=== PATIENT | male | born 1940 | race Caucasian/White ===

== ENCOUNTER 2022-12-07 15:41 | Inpatient (IN) | payer MEDICARE, OTHER, SELFPAY ==
[2022-12-07 15:56] VITALS: BP 114/67; PULSE 91; RESP 20; TEMP 35.9; O2SAT 97; BMI 29.7
--- NOTE | 2022-12-07 16:24 | ED_ITS ---
HPI - General Adult General Time Seen by Provider: 16:48 Date Seen: 12/07/22 Chief complaint: Weakness Stated complaint: In and out of consciousness Time Seen by Provider: 12/07/22 16:22 Source: patient, family ( Son and provide history.), RN notes reviewed and old records reviewed Mode of arrival: ambulatory Limitations: no limitations History of Present Illness HPI narrative: Murphy is an 82-year-old male brought in by a his and son for concern of behavioral changes/altered mental status. He is having spells where he will not be responsive and will keep his eyes closed. His notes that she is unable to help the system up at times, he is becoming weaker in she cannot manage him alone. The son lives in [place] and believes the situation to be unsafe. He cannot get down quick enough if his dad should fall or the need help. His dad did wonder out of the house in the night about a week and a half ago and the police had to come help. They do have a nursing consult with [facility] care unit in [place] this coming Saturday. He was at [address] yesterday, had normal chest x-ray, had no acute changes on head CT, COVID 19 and influenza were negative, TSH was 5.72, urinalysis was normal, CBC and comprehensive metabolic panel were showing no acute abnormalities. His sodium was 136 yesterday and his notes that is only 1 point above normal. He has had a history of hyponatremia before. I reviewed with her that the sodium level yesterday would not be causative of his symptoms. Ultimately the son does not feel that he is safe to go home with his mom, she does not feel safe caring for him. It does sound like he does have . We have spent some time discussing Alzheimer's, progression of the disease. He does have chronic lower extremity edema for which his states they have stopped giving him Lasix. If the given Lasix he will have urinary incontinence and issues with that. Related Data Home Medications Medication Instructions Recorded Confirmed allopurinol 300 mg tablet 300 mg PO DAILY 12/07/22 12/07/22 amlodipine 10 mg tablet 10 mg PO DAILY 12/07/22 12/07/22 aspirin 81 mg capsule 81 mg PO DAILY 12/07/22 12/08/22 donepezil 10 mg tablet 10 mg PO DAILY 12/07/22 12/07/22 famotidine 40 mg tablet 40 mg PO DAILY 12/07/22 12/07/22 furosemide 20 mg tablet 20 mg PO DAILY PRN 12/07/22 12/07/22 levothyroxine 150 mcg tablet 150 mcg PO DAILY 12/07/22 12/07/22 lisinopril 20 mg tablet 20 mg PO BID 12/07/22 12/07/22 memantine 10 mg tablet 10 mg PO BID 12/07/22 12/07/22 metoprolol succinate 25 mg 12.5 mg PO DAILY 12/07/22 12/07/22 tablet,extended release 24 hr omeprazole 20 mg capsule,delayed 20 mg PO DAILY 12/07/22 12/07/22 release sertraline 50 mg tablet 75 mg PO DAILY 12/07/22 12/07/22 aspirin 81 mg tablet,delayed 81 mg PO DAILY 12/08/22 12/08/22 release (Adult Low Dose Aspirin) Allergies Allergy/AdvReac Type Severity Reaction Status Date / Time No Known Drug Allergies Allergy Verified 12/07/22 15:56 Review of Systems Status of ROS: Reports: unobtainable due to medical condition and unobtainable due to mental status PFSH PFS Medical History (Updated 12/08/22 @ 12:04 by Fany Montez MD) Renal cell carcinoma ?C64.9 - Malignant neoplasm of unspecified kidney, except renal pelvis (ICD- 10) Basal cell carcinoma ?C44.91 - Basal cell carcinoma of skin, unspecified (ICD-10) Hypothyroidism ?E03.9 - Hypothyroidism, unspecified (ICD-10) Gout ?M10.9 - Gout, unspecified (ICD-10) Depression ?F32.A - Depression, unspecified (ICD-10) Essential hypertension ?I10 - Essential (primary) hypertension (ICD-10) Surgical History (Updated 12/07/22 @ 17:49 by Fany Montez MD) History of hip replacement ?Z96.649 - Presence of unspecified artificial hip joint (ICD-10) Hx of cholecystectomy ?Z90.49 - Acquired absence of other specified parts of digestive tract (ICD- 10) History of nephrectomy ?Z90.5 - Acquired absence of kidney (ICD-10) Social History (Updated 12/07/22 @ 19:15 by Fany Montez MD) Narrative: Murphy lives with Denise (Medical decision maker) of 50 years. Retired. 2 adult sons, nonsmoker, no ETOH use. DNR/DNI status What is your current living situation?: I presently have a place to live Problems where you live: no known problems Problems where you live details: n/a In the past 12 months, utilities in danger of being shut off: no In the past 12 mos, have been you worried that your food would run out before you had money to buy more?: never true In the past 12 mos, the food you bought just didn't last and you didn't have money to buy more?: never true Smoking Status: Never smoker Do you use any of these nicotine containing products: None Second hand tobacco smoke exposure: No How often do you have a drink containing alcohol: never How often do you have six or more drinks on one occasion: Never AUDIT-C Alcohol total score: 0 Non-prescribed substance use: denies use How often does anyone, including family, friends and others, physically hurt you : never How often does anyone, including family, friends and others, insult or talk down to you: never How often does anyone, including family, friends and others, threaten you with harm: never How often does anyone, including family, friends and others, scream or curse at you: never service: Yes Exam Const: Vital Signs, click to edit/add: Vital Signs - 24 hr 12/08/22 07:00 12/08/22 07:00 12/08/22 11:00 Temperature 98.5 F 98.4 F Pulse Rate [Right Pulse Oximeter] 90 90 84 Respiratory Rate 16 16 16 Blood Pressure [Le ft Arm] 139/94 H 97/67 Pulse Oximetry 94 95 Oxygen Delivery Me thod Room Air Room Air Documenting provider has reviewed patient's vital signs: yes Other: Patient is slender build, lying in bed comfortably keeping his eyes closed. He will open his eyes when I request him to. He will occasionally out of the blue answer something. He does follow commands when prompted. HENMT: Common normals: normocephalic, head/scalp atraumatic, hearing grossly normal bilaterally and external ears normal Head and scalp: normocephalic and atraumatic External ear: external ears normal Eye: Common normals: PERRL, EOMs intact bilaterally and no scleral icterus Pupil: PERRL Other: Mild conjunctival injection without any periorbital swelling erythema or drainage. Neck & C-Spine: Common normals: full ROM, no lymphadenopathy and supple Resp: Common normals: normal respiratory effort, no retractions, no use of accessory muscles and clear to auscultation bilaterally Auscultation: clear to auscultation bilaterally Cardio: Common normals: regular rate, regular rhythm, S1 normal heart sound, S2 normal heart sound, no gallops and no clicks Rate: regular rate Rhythm: regular rhythm Heart sounds: S1 normal and S2 normal GI: Common normals: Normal to inspection, nondistended, normoactive bowel sounds present, soft to palpation, non-tender, no hepatosplenomegaly and no masses Palpation: soft and no hepatosplenomegaly Extremity: Other: Chronic pitting edema with stocking it is on both lower extremities. Family feels it is baseline. Course Course Hospital Course: Have reviewed with family that I here the concern about his being safe at home. Will talk to our hospitalist about admission. We will stab lotion IV, recheck a basic metabolic panel, C reactive protein and CBC. Beyond that, I do not see a nything else that we need to act on emergently. We certainly can observe him and see if there is any focus of infection that should develop. I have reviewed with them that I would not recommend an MRI of his brain, head CT did not show any significant major changes yesterday. Even if he did perhaps have a small stroke, given his advanced dementia, there is not likely any acute treatment that is going to alter his core significantly. Hospitalists can review this but I would not recommend MRI at this time. Consultations Consultation #1: Have spoken with the hospitalist Dr. Montez regarding this patient. She understands my review of the social situation, does except for placement. Time: 17:13 Vital Signs Vital signs: Initial Vital Signs Temperature 96.7 F L 12/07/22 15:56 Temperature Source Temporal Artery Scan 12/07/22 15:56 Pulse Rate 91 12/07/22 15:56 Pulse Rhythm Regular 12/07/22 15:56 Respiratory Rate 20 12/07/22 15:56 Blood Pressure 114/67 12/07/22 15:56 Blood Pressure Mean 82 12/07/22 15:56 Blood Pressure Position Sitting 12/07/22 15:56 Pulse Oximetry 97 12/07/22 15:56 Oxygen Delivery Method Room Air 12/07/22 15:56 Vital Signs Temperature 96.7 F L 12/07/22 15:56 Pulse Rate 91 12/07/22 15:56 Respiratory Rate 20 12/07/22 15:56 Blood Pressure 114/67 12/07/22 15:56 Pulse Oximetry 97 12/07/22 15:56 Oxygen Delivery Method Room Air 12/07/22 15:56 Temperature 98.7 F 12/08/22 23:12 Pulse Rate 94 12/08/22 23:12 Respiratory Rate 20 12/08/22 23:12 Blood Pressure 152/91 H 12/08/22 23:12 Pulse Oximetry 95 12/08/22 23:12 Oxygen Delivery Method Room Air 12/08/22 23:12 Medical Decision Making Lab Data Lab results reviewed: Yes I reviewed the patient's lab results Labs: Lab Results 12/07/22 12/08/22 Range/Units 17:45 06:51 WBC 7.30 (4.50-11.00) K/uL RBC 4.48 (4.30-5.90) m/uL Hgb 13.6 (13.5-17.5) gm/dL Hct 41.0 (37.0-53.0) % MCV 92 (80-100) fL MCH 30 (26-34) pg MCHC 33 (32-36) gm/dL RDW Coeff of Merari 13.0 (11.5-15.5) % Plt Count 254 (140-440) K/uL Neut % (Auto) 73.7 H (42.0-72.0) % Lymph % (Auto) 13.3 L (20-44) % [place] % (Auto) 11.0 (0.0-11.0) % Eos % (Auto) 1.0 (0.0-7.0) % Baso % (Auto) 0.7 (0.0-3.0) % Neut # (Auto) 5.40 (1.7-7.0) K/uL Lymph # (Auto) 1.00 (0.90-2.90) K/uL [place] # (Auto) 0.80 (0.00-0.90) K/UL Eos # (Auto) 0.07 (0.00-0.50) K/uL Baso # (Auto) 0.05 (0.00-0.30) K/uL Abs Immat Gran (auto) 0.02 (0.00-0.30) K/uL Imm/Tot Granulo (auto) 0.3 % Sodium 136 135 (135-149) mmol/L Potassium 4.6 4.1 (3.6-5.1) mmol/L Chloride 99 101 (96-114) mmol/L Carbon Dioxide 30 27 (20-32) mmol/L BUN 40 H 33 H (7-30) mg/dL Creatinine 1.3 1.2 (0.5-1.5) mg/dL Estimated Creat Clear 48.66 51.19 Estimated GFR 55 60 ml/min Glucose 125 H 95 (60-115) mg/dL Calcium 9.6 9.4 (8.4-10.6) mg/dL Troponin I 0.05 H 0.06 H* (0.01-0.04) ng/mL C-Reactive Protein 1.8 H (0.5-1.0) mg/dL Lab Acknowledgement Test Added Discharge Plan Discharge Clinical Impression: Unable to care for self, Dementia Patient Disposition: Admitted As Observation
[2022-12-07 18:02] LABS: Basophils Absolute Auto 0.05 K/uL (0.00-0.30); Basophils Percent Auto 0.7 % (0.0-3.0); Eosinophils Absolute Auto 0.07 K/uL (0.00-0.50); Hemoglobin* 13.6 gm/dL (13.5-17.5); Immature Granulocytes Abs Auto 0.02 K/uL (0.00-0.30); Immature Granulocytes Pct Auto 0.3 %; Lymphocytes Percent Auto 13.3 % (20-44); Mean Corpuscular HGB Conc 33 gm/dL (32-36); Mean Corpuscular Hemoglobin 30 pg (26-34); Mean Corpuscular Volume 92 fL (80-100); Neutrophils Percent Auto 73.7 % (42.0-72.0); Platelet Count* 254 K/uL (140-440); Red Blood Count 4.48 m/uL (4.30-5.90)
[2022-12-07 18:18] LABS: Slide Review Reflex No
[2022-12-07 18:22] LABS: Chloride* 99 mmol/L (96-114); Potassium* 4.6 mmol/L (3.6-5.1); Sodium* 136 mmol/L (135-149)
[2022-12-07 18:24] LABS: Creatinine* 1.3 mg/dL (0.5-1.5); Est. Creatinine Clearance* 48.66; Estimated Glomerular Filt Rate 55 ml/min
[2022-12-07 18:25] LABS: Blood Urea Nitrogen* 40 mg/dL (7-30); Carbon Dioxide* 30 mmol/L (20-32); Glucose* 125 mg/dL (60-115)
[2022-12-07 18:26] LABS: Calcium* 9.6 mg/dL (8.4-10.6)
[2022-12-07 18:28] LABS: C Reactive Protein* 1.8 mg/dL (0.5-1.0)
--- NOTE | 2022-12-07 18:30 | ED.NURSE ---
report given to Dina ARANGO, pt will transfer to [facility] via cart with belongings.
[2022-12-07 18:52] VITALS: BP 96/66; PULSE 85; RESP 16; TEMP 36.2; O2SAT 99; BMI 27.7
--- NOTE | 2022-12-07 19:13 | PM.IMHP1 ---
Hospitalist- H&P: HPI History of Present Illness Date Seen: 12/07/22 Chief complaint: In and out of consciousness Narrative: Murphy Lacy is a 82 year old male with a known history of Alzheimer's dementia who was brought in to the ED this evening by his Denise for concern of weakness and altered mental status. She has noted increasing weakness and decreased level of responsiveness intermittently over the past few days. He has had no symptoms of acute illness, no fevers. Last fall was approximately 1 month ago. Yesterday, he was seen in the [place] [address] emergency room. Workup at [place] [address] on 12/06: - negative head CT - negative chest x-ray - Negative flu, negative COVID, normal TSH, normal UA, normal electrolytes There were no beds available for placement locally last night, so Denise elected to take Christiano home. This morning, he seemed even weaker and less responsive, so she brought him to the [facility] Emergency Room. In our ED, VS and baseline labs reassuring. His weakness and dementia have progressed to the point that she is unable to care for him safely at home; last week he wandered out of the house and police had to be called to help find patient. Family has been in touch with a facility in [place] ([facility]) and they are currently scheduled for a home assessment on Saturday. Medical history updated below after review with Denise; PCP is Dr. Lowry in [place]. Review of Systems Narrative: Per Denise: - blood pressure has been on the lower side for awhile, it is unclear if patient is symptomatic from low blood pressure. He has been taking his home medications - Murphy has recently had more incontinence and urinary frequency; they have been holding his furosemide as a result Per Murphy: - ROS limited by cognition, but specifically denies any chest pain or any concerns for hospitalist [facility] Medical History (Updated 12/07/22 @ 19:43 by Fany Montez MD) Renal cell carcinoma ?C64.9 - Malignant neoplasm of unspecified kidney, except renal pelvis (ICD-10) Basal cell carcinoma ?C44.91 - Basal cell carcinoma of skin, unspecified (ICD-10) Hypothyroidism ?E03.9 - Hypothyroidism, unspecified (ICD-10) Gout ?M10.9 - Gout, unspecified (ICD-10) Depression ?F32.A - Depression, unspecified (ICD-10) Essential hypertension ?I10 - Essential (primary) hypertension (ICD-10) Surgical History (Updated 12/07/22 @ 17:49 by Fany Montez MD) History of hip replacement ?Z96.649 - Presence of unspecified artificial hip joint (ICD-10) Hx of cholecystectomy ?Z90.49 - Acquired absence of other specified parts of digestive tract (ICD-10) History of nephrectomy ?Z90.5 - Acquired absence of kidney (ICD-10) Social History (Updated 12/07/22 @ 19:15 by Fany Montez MD) Narrative: Murphy lives with Denise (Medical decision maker) of 50 years. Retired. 2 adult sons, nonsmoker, no ETOH use. DNR/DNI status Smoking Status: Never smoker Do you use any of these nicotine containing products: None Second hand tobacco smoke exposure: No How often do you have a drink containing alcohol: never How often do you have six or more drinks on one occasion: Never AUDIT-C Alcohol total score: 0 Non-prescribed substance use: denies use service: Yes Meds Home Medications and Allergies Home Medications Medication Instructions Recorded Confirmed Type allopurinol 300 mg tablet 300 mg PO DAILY 12/07/22 12/07/22 History amlodipine 10 mg tablet 10 mg PO DAILY 12/07/22 12/07/22 History aspirin 81 mg capsule 81 mg PO DAILY 12/07/22 12/07/22 History donepezil 10 mg tablet 10 mg PO DAILY 12/07/22 12/07/22 History famotidine 40 mg tablet 40 mg PO DAILY 12/07/22 12/07/22 History furosemide 20 mg tablet 20 mg PO DAILY PRN 12/07/22 12/07/22 History levothyroxine 150 mcg tablet 150 mcg PO DAILY 12/07/22 12/07/22 History lisinopril 20 mg tablet 20 mg PO BID 12/07/22 12/07/22 History memantine 10 mg tablet 10 mg PO BID 12/07/22 12/07/22 History metoprolol succinate 25 mg 12.5 mg PO DAILY 12/07/22 12/07/22 History tablet,extended release 24 hr omeprazole 20 mg capsule,delayed 20 mg PO DAILY 12/07/22 12/07/22 History release sertraline 50 mg tablet 75 mg PO DAILY 12/07/22 12/07/22 History Allergies Allergy/AdvReac Type Severity Reaction Status Date / Time No Known Drug Allergies Allergy Verified 12/07/22 15:56 Exam Narrative: Exam Narrative: GEN: Alert in laying comfortably in bed, appears chronically ill but non toxic HEENT: EOMIs bilaterally, no scleral icterus CV: RRR, No concerning murmurs, heart sounds distant R: LCTA bilaterally without concerning wheezing, air movement adequate Abdomen: Soft, tolerates palpation, no distension Ext: 2+ edema BLE, symmetric Skin: Scattered SKs on extremities, no concerning lesions on exposed skin Neuro: No focal deficits, no resting tremor Psych: MCI is apparent, no agitation Const: Vital Signs, click to edit/add: Vital Signs - 24 hr 12/07/22 15:56 Temperature 96.7 F L Pulse Rate [Pulse Oximeter] 91 Respiratory Rate 20 Blood Pressure [Ri ght Upper Arm] 114/67 Pulse Oximetry 97 Oxygen Delivery Me thod Room Air Hospitalist - H&P: Result Labs Labs: Short CBC 12/07/22 Range/Units 17:45 WBC 7.30 (4.50-11.00) K/uL Hgb 13.6 (13.5-17.5) gm/dL Hct 41.0 (37.0-53.0) % Plt Count 254 (140-440) K/uL BMP 12/07/22 17:45 Sodium 136 Potassium 4.6 Chloride 99 Carbon Dioxide 30 BUN 40 H Creatinine 1.3 Glucose 125 H Calcium 9.6 Assessment and Plan Assessment and plan (1) Weakness: Problem comment: - likely primarily related to progression of dementia - differential diagnosis includes hypotension, infectious process, atypical CVA, metabolic disturbance - labs upon admission are reassuring; we will hold blood pressure meds on admission - therapies ordered Status: Acute (2) Dementia: Problem comment: - Alzheimer's, no agitation Status: Acute (3) Unable to care for self: Problem comment: - will require higher LOC upon discharge; family has initiated discussions with [facility] in [place] Status: Acute Plan - admit, therapies - SCDs for ppx - pharmacologic anticoagulation deferred given GERD and anticipated short stay - and son updated at bedside, questions answered
--- NOTE | 2022-12-07 19:41 | PC.NURSE ---
shift note: pt admit to rm 258 via stretcher from ED. BP 96/66. Pt asymptomatic. Dr. Montez aware of BP. Pt 2/walker to bed. pt slow with verbal responses. IV in place to Rt FA. Reported to Lani ARANGO
[2022-12-07] MEDS: SODIUM CHLORIDE 0.9 % (FLUSH) 10 ML SYRINGE 5 ML IVF (20:44)
[2022-12-07] MEDS: MEMANTINE HCL 10 MG TABLET PO (20:44)
[2022-12-07] MEDS: FAMOTIDINE 20 MG TABLET PO (20:44)
[2022-12-07] MEDS: allopurinoL 300 MG TABLET PO (20:44)
[2022-12-07] MEDS: OMEPRAZOLE 20 MG CAPSULE DR PO (20:44)
[2022-12-07] MEDS: ASPIRIN 81 MG TABLET EC PO (20:44)
[2022-12-07 21:54] LABS: Troponin I* 0.05 ng/mL (0.01-0.04)
[2022-12-07 23:07] VITALS: BP 115/79; RESP 18; TEMP 36.6; O2SAT 97
--- NOTE | 2022-12-08 06:13 | PC.NURSE ---
End of shift: Pt alert to self. VSS w/ sats >90% on RA. Occasionally incontinent of urine. Pt had 1 continent void via bedside commode. Pt has small amount of bleeding from penis, pt was straight cathed at [facility] on 12/06 per pt and family. A2 w/ walker and gait belt w/ queuing. Pt woke up in the middle of the night very confused and hard to reorientate. Construction Inspector sat w/ pt until pt was able to fall back asleep. Bed alarm in place. ?
[2022-12-08 07:00] VITALS: BP 139/94; PULSE 90; RESP 16; TEMP 36.9; O2SAT 94
[2022-12-08 07:23] LABS: Chloride* 101 mmol/L (96-114); Potassium* 4.1 mmol/L (3.6-5.1); Sodium* 135 mmol/L (135-149)
[2022-12-08 07:26] LABS: Creatinine* 1.2 mg/dL (0.5-1.5); Est. Creatinine Clearance* 51.19; Estimated Glomerular Filt Rate 60 ml/min
[2022-12-08 07:27] LABS: Blood Urea Nitrogen* 33 mg/dL (7-30); Calcium* 9.4 mg/dL (8.4-10.6); Carbon Dioxide* 27 mmol/L (20-32); Glucose* 95 mg/dL (60-115)
[2022-12-08 07:54] LABS: Troponin I* 0.06 ng/mL (0.01-0.04)
[2022-12-08] MEDS: DONEPEZIL 10 MG TABLET PO (09:23)
[2022-12-08] MEDS: SERTRALINE 50 MG TABLET 75 MG PO (09:23)
[2022-12-08] MEDS: FAMOTIDINE 20 MG TABLET PO ×2 (09:23→20:10)
[2022-12-08] MEDS: LEVOTHYROXINE 75 MCG TABLET 150 MCG PO (09:23)
[2022-12-08] MEDS: MEMANTINE HCL 10 MG TABLET PO ×2 (09:23→20:10)
[2022-12-08] MEDS: SODIUM CHLORIDE 0.9 % (FLUSH) 10 ML SYRINGE 5 ML IVF ×2 (09:23→20:11)
[2022-12-08 11:00] VITALS: BP 97/67; PULSE 84; RESP 16; TEMP 36.9; O2SAT 95
--- NOTE | 2022-12-08 11:56 | PM.IMPN1 ---
Progress Note: A&P Assessment and plan (1) Weakness: Problem details: - likely primarily related to progression of dementia, NSTEMI also possibly contributing - hypotensive on admission, holding home BP medications, TTE 12/08 - therapies ordered Status: Acute (2) NSTEMI (non-ST elevated myocardial infarction): Problem details: - elevated troponin noted on admission - discussed results with ; she would like to trend troponin and obtain TTE to help with medication management and guide care/dispo Status: Acute (3) Dementia: Problem details: - Alzheimer's, no agitation Status: Acute (4) Unable to care for self: Problem details: - will require higher LOC upon discharge; family has initiated discussions with [facility] in [place] Status: Acute (5) Abnormal ear exam: Problem details: - erythema and edema of inferior auricles bilaterally, L>R. No evidence of polychondritis on chart review, does not appear acutely infectious - patient does have history of skin picking - continue to follow, treat for cellulitis if clinically indicated Status: Acute Plan - per above - updated at phone and bedside, questions answered Subjective Date Seen: 12/08/22 Interval history: Murphy was admitted last night for acute on chronic weakness in the setting of dementia. His troponin was noted to be elevated at 0.05, this morning is 0.06. Patient denies any chest pain or other concerns for hospitalist team this morning. Exam Narrative: Exam Narrative: GEN: Sitting comfortably in bedside chair and eating breakfast HEENT: Murphy has erythema and edema of inferior auricles bilaterally, L>R. No ttp, no open skin CV: RRR, No concerning murmurs R: LCTA bilaterally without concerning wheezing, air movement adequate Ext: wwp, no concerning edema Skin: Dry flaky skin on scalp, scattered SKs on back and extremities. No concerning skin lesions or rashes on exposed skin Psych: No agitation, cognitive impairment is evident Const: Vital Signs, click to edit/add: Vital Signs - 24 hr 12/07/22 15:56 12/07/22 18:52 12/07/22 23:07 Temperature 96.7 F L 97.1 F L 97.9 F Pulse Rate [Left B rachial] 85 Pulse Rate [Pulse Oximeter] 91 Pulse Rate [Right Pulse Oximeter] Respiratory Rate 20 16 18 Blood Pressure [Le ft Arm] 96/66 115/79 Blood Pressure [Ri ght Upper Arm] 114/67 Pulse Oximetry 97 99 97 Oxygen Delivery Me thod Room Air Room Air Room Air 12/08/22 07:00 12/08/22 07:00 Temperature 98.5 F Pulse Rate [Left B rachial] Pulse Rate [Pulse Oximeter] Pulse Rate [Right Pulse Oximeter] 90 90 Respiratory Rate 16 16 Blood Pressure [Le ft Arm] 139/94 H Blood Pressure [Ri ght Upper Arm] Pulse Oximetry 94 Oxygen Delivery Me thod Room Air Labs Labs: Laboratory Results - last 24 hr 12/07/22 12/08/22 17:45 06:51 WBC 7.30 RBC 4.48 Hgb 13.6 Hct 41.0 MCV 92 MCH 30 MCHC 33 RDW Coeff of Merari 13.0 Plt Count 254 Neut % (Auto) 73.7 H Lymph % (Auto) 13.3 L [place] % (Auto) 11.0 Eos % (Auto) 1.0 Baso % (Auto) 0.7 Neut # (Auto) 5.40 Lymph # (Auto) 1.00 [place] # (Auto) 0.80 Eos # (Auto) 0.07 Baso # (Auto) 0.05 Abs Immat Gran (auto) 0.02 Imm/Tot Granulo (auto) 0.3 Sodium 136 135 Potassium 4.6 4.1 Chloride 99 101 Carbon Dioxide 30 27 BUN 40 H 33 H Creatinine 1.3 1.2 Estimated Creat Clear 48.66 51.19 Estimated GFR 55 60 Glucose 125 H 95 Calcium 9.6 9.4 Troponin I 0.05 H 0.06 H* C-Reactive Protein 1.8 H Lab Acknowledgement Test Added
--- NOTE | 2022-12-08 15:49 | PC.NURSE ---
End of Shift: Patient pleasant and cooperative. Alert to self. Afebrile. Denies pain. Up to chair with 2 assist, walker and gait belt. Tolerating regular diet with no nausea.
[2022-12-08 16:05] VITALS: BP 140/79; PULSE 89; RESP 16; TEMP 36.8; O2SAT 95
[2022-12-08 19:05] VITALS: BP 139/54; PULSE 87; RESP 16; TEMP 36.8; O2SAT 97
[2022-12-08] MEDS: allopurinoL 300 MG TABLET PO (20:10)
[2022-12-08] MEDS: ASPIRIN 81 MG TABLET EC PO (20:10)
[2022-12-08] MEDS: OMEPRAZOLE 20 MG CAPSULE DR PO (20:11)
--- NOTE | 2022-12-08 22:11 | PC.NURSE ---
Shift [id number]- Patient denies pain. He seemed to be hallucinating this afternoon about two boys arguing. Family states he seems more out of it today. This afternoon he is somewhat restless to go (leave), though is not agitated. He keeps his eyes closed throughout interactions, even eating, is rarely able or willing to follow prompts to open eyes. Responses are slow or none. He does make an effort to tell RN a few jokes after supper, though is unable to remember them as he is telling them. Maximum assist to eat, eventually total assist. He is incontinent- pericares provided.
[2022-12-08 23:12] VITALS: BP 152/91; PULSE 94; RESP 20; TEMP 37.1; O2SAT 95
[2022-12-08] MEDS: OLANZapine 5 MG TAB.RAPDIS PO (23:46)
--- NOTE | 2022-12-09 06:36 | PC.NURSE ---
[id number]: Alert to self. VSS. Pt was restless, throwing legs out of bed, and appeared to hallucinating talking about ?the man by the door?. attempting to reorientate and sit w/ pt. PRN Zyprexa given. Pt resting. ?pt is incontinent. Turn and repo.
[2022-12-09 07:00] VITALS: BP 111/67; PULSE 66; RESP 14; TEMP 36.2; O2SAT 94
[2022-12-09 07:35] LABS: Basophils Absolute Auto 0.03 K/uL (0.00-0.30); Basophils Percent Auto 0.6 % (0.0-3.0); Eosinophils Absolute Auto 0.08 K/uL (0.00-0.50); Eosinophils Percent Auto 1.5 % (0.0-7.0); Hematocrit 35.7 % (37.0-53.0); Hemoglobin* 11.8 gm/dL (13.5-17.5); Immature Granulocytes Abs Auto 0.01 K/uL (0.00-0.30); Immature Granulocytes Pct Auto 0.2 %; Lymphocytes Absolute Auto 1.32 K/uL (0.90-2.90); Lymphocytes Percent Auto 25.2 % (20-44); Mean Corpuscular HGB Conc 33 gm/dL (32-36); Mean Corpuscular Hemoglobin 31 pg (26-34); Mean Corpuscular Volume 93 fL (80-100); Monocytes Percent Auto 13.6 % (0.0-11.0); Neutrophils Absolute Auto 3.08 K/uL (1.7-7.0); Neutrophils Percent Auto 58.9 % (42.0-72.0); Platelet Count* 214 K/uL (140-440); Red Blood Count 3.85 m/uL (4.30-5.90); White Blood Count* 5.23 K/uL (4.50-11.00)
[2022-12-09 07:42] LABS: Slide Review Reflex No
[2022-12-09 07:46] LABS: Chloride* 103 mmol/L (96-114); Potassium* 3.7 mmol/L (3.6-5.1); Sodium* 137 mmol/L (135-149)
[2022-12-09 07:49] LABS: Blood Urea Nitrogen* 30 mg/dL (7-30); Carbon Dioxide* 30 mmol/L (20-32); Creatinine* 1.2 mg/dL (0.5-1.5); Est. Creatinine Clearance* 51.19; Estimated Glomerular Filt Rate 60 ml/min; Glucose* 96 mg/dL (60-115)
[2022-12-09 08:02] LABS: Troponin I* 0.07 ng/mL (0.01-0.04)
--- NOTE | 2022-12-09 11:08 | PM.IMPN1 ---
Progress Note: A&P Assessment and plan (1) Weakness: Problem details: - likely primarily related to progression of dementia, NSTEMI also possibly contributing - hypotensive on admission, holding home BP medications, TTE 12/08 - therapies ordered Status: Acute (2) NSTEMI (non-ST elevated myocardial infarction): Problem details: - elevated troponin noted on admission - discussed results with ; she would like to trend troponin and obtain TTE to help with medication management and guide care/dispo - TTE obtained 12/08: Normal LV size with moderately increased wall thickness, EF 60-65%, mildly enlarged left atrium, sclerotic aortic and mitral valves Status: Acute (3) Dementia: Problem details: - Alzheimer's, no agitation Status: Acute (4) Unable to care for self: Problem details: - will require higher LOC upon discharge; family has initiated discussions with [facility] in [place] Status: Acute (5) Abnormal ear exam: Problem details: - erythema and edema of inferior auricles bilaterally, (L>R), noted 12/08. No hx of polychondritis on chart review - patient does have history of skin picking - continue to follow, significant improvement 12/09 Status: Acute Plan - continue to follow BPs, holding home medications - dispo: requires higher LOC upon d/c, appreciate input from therapies, social work - ASA and SCDs for ppx Subjective Date Seen: 12/09/22 Interval history: Murphy was admitted on 12/07 for acute on chronic weakness in the setting of dementia. His troponin was noted to be elevated on admission at 0.05 --> 0.06 --> 0.07. He has never noted chest pain. Last night, he was agitated and trying to leave his bed; received a dose of Zyprexa. This morning, he is sleepy, but was able to get up from bed to chair and order breakfast. Exam Narrative: Exam Narrative: GEN: Asleep in chair, wakes to voice and denies concerns HEENT: Ears less erythematous today, no warmth, redness, or ttp CV: RRR, No concerning murmurs R: LCTA bilaterally without concerning wheezing, air movement adequate Ext: wwp, no concerning edema Skin: Hip hematoma not formally examined (from fall 4 weeks ago) Psych: Sleepy, no agitation Const: Vital Signs, click to edit/add: Vital Signs - 24 hr 12/08/22 16:05 12/08/22 19:05 12/08/22 23:12 Temperature 98.2 F 98.2 F 98.7 F Pulse Rate [Right Pulse Oximeter] 89 87 94 Respiratory Rate 16 16 20 Blood Pressure [Le ft Arm] 140/79 H 139/54 L 152/91 H Pulse Oximetry 95 97 95 Oxygen Delivery Me thod Room Air Room Air Room Air 12/09/22 07:00 Temperature 97.2 F L Pulse Rate [Right Pulse Oximeter] 66 Respiratory Rate 14 Blood Pressure [Le ft Arm] 111/67 Pulse Oximetry 94 Oxygen Delivery Me thod Room Air Labs Labs: Laboratory Results - last 24 hr 12/09/22 07:10 WBC 5.23 RBC 3.85 L Hgb 11.8 L Hct 35.7 L MCV 93 MCH 31 MCHC 33 RDW Coeff of Merari 13.0 Plt Count 214 Neut % (Auto) 58.9 Lymph % (Auto) 25.2 [place] % (Auto) 13.6 H Eos % (Auto) 1.5 Baso % (Auto) 0.6 Neut # (Auto) 3.08 Lymph # (Auto) 1.32 [place] # (Auto) 0.70 Eos # (Auto) 0.08 Baso # (Auto) 0.03 Abs Immat Gran (auto) 0.01 Imm/Tot Granulo (auto) 0.2 Sodium 137 Potassium 3.7 Chloride 103 Carbon Dioxide 30 BUN 30 Creatinine 1.2 Estimated Creat Clear 51.19 Estimated GFR 60 Glucose 96 Calcium 9.0 Troponin I 0.07 H*
--- NOTE | 2022-12-09 15:30 | PC.NURSE ---
End of Shift: Patient sleepy this AM. Minimally responsive to name. Did open eyes and was able to transfer from bed to chair with 2 assist, walker and gait belt. Offered food/water to patient throughout shift and would not open eyes or mouth to eat or drink. Unable to give patient any medications, updated MD. Patient incontinent x2. Frequent turn and reposition.
[2022-12-09 15:48] VITALS: BP 141/89; PULSE 88; RESP 16; TEMP 36.2; O2SAT 97
[2022-12-09] MEDS: SODIUM CHLORIDE 0.9 % (FLUSH) 10 ML SYRINGE 5 ML IVF (20:45)
--- NOTE | 2022-12-09 22:47 | PC.NURSE ---
Shift [id number]- Patient is minimally responsive this shift- only occasionally/rarely responding to prompts. He is up to chair this afternoon and returned to bed (pivot) with A/3, walker, gait belt. He keeps eyes closed throughout process, but does participate in movement. He is not awake or responsive enough to eat or take pills and is particularly somnolent this evening. Tonight though, upon a check, he is found to be trying to sit up in bed, stated he had to use the bathroom, then successfully used urinal RN provided. He also did take water through straw at RN assistance at that time.
[2022-12-09 23:00] VITALS: BP 167/89; PULSE 88; PULSE 97; RESP 16; TEMP 36.4; O2SAT 97
[2022-12-10 06:24] LABS: Basophils Absolute Auto 0.04 K/uL (0.00-0.30); Basophils Percent Auto 0.5 % (0.0-3.0); Eosinophils Absolute Auto 0.11 K/uL (0.00-0.50); Eosinophils Percent Auto 1.3 % (0.0-7.0); Hematocrit 40.7 % (37.0-53.0); Hemoglobin* 13.5 gm/dL (13.5-17.5); Immature Granulocytes Abs Auto 0.02 K/uL (0.00-0.30); Immature Granulocytes Pct Auto 0.2 %; Lymphocytes Percent Auto 14.8 % (20-44); Mean Corpuscular HGB Conc 33 gm/dL (32-36); Mean Corpuscular Hemoglobin 31 pg (26-34); Mean Corpuscular Volume 92 fL (80-100); Monocytes Percent Auto 10.1 % (0.0-11.0); Neutrophils Percent Auto 73.1 % (42.0-72.0); Platelet Count* 223 K/uL (140-440); RDW Coefficient of Variation % 12.8 % (11.5-15.5); Red Blood Count 4.41 m/uL (4.30-5.90); White Blood Count* 8.33 K/uL (4.50-11.00)
[2022-12-10 06:25] LABS: Chloride* 100 mmol/L (96-114); Sodium* 137 mmol/L (135-149)
[2022-12-10 06:26] LABS: Potassium* 3.9 mmol/L (3.6-5.1); Slide Review Reflex No
[2022-12-10 06:28] LABS: Creatinine* 1.1 mg/dL (0.5-1.5); Est. Creatinine Clearance* 55.85; Estimated Glomerular Filt Rate 67 ml/min
[2022-12-10 06:29] LABS: Blood Urea Nitrogen* 24 mg/dL (7-30); Calcium* 9.3 mg/dL (8.4-10.6); Carbon Dioxide* 30 mmol/L (20-32); Glucose* 92 mg/dL (60-115)
[2022-12-10 06:42] LABS: Troponin I* 0.06 ng/mL (0.01-0.04)
--- NOTE | 2022-12-10 06:58 | PC.NURSE ---
Shift note: Turned and repo, incontinent of urine but also uses the urinal in bed. Pt wakes up to voice, slow to respond during conversation but keeps somewhat awake.
[2022-12-10 07:00] VITALS: BP 144/76; PULSE 90; PULSE 98; RESP 16; TEMP 36.2; O2SAT 98
[2022-12-10] MEDS: MEMANTINE HCL 10 MG TABLET PO ×2 (09:51→20:25)
[2022-12-10] MEDS: DONEPEZIL 10 MG TABLET PO (09:51)
[2022-12-10] MEDS: SERTRALINE 50 MG TABLET 75 MG PO (09:51)
[2022-12-10] MEDS: LEVOTHYROXINE 75 MCG TABLET 150 MCG PO (09:52)
[2022-12-10] MEDS: FAMOTIDINE 20 MG TABLET PO ×2 (09:52→20:25)
[2022-12-10] MEDS: SODIUM CHLORIDE 0.9 % (FLUSH) 10 ML SYRINGE 5 ML IVF ×2 (09:52→20:25)
--- NOTE | 2022-12-10 09:53 | PM.IMPN1 ---
Progress Note: A&P Assessment and plan (1) Weakness: Problem details: - likely primarily related to progression of dementia, NSTEMI also possibly contributing - hypotensive on admission, held home BP medications upon admission - BP still low in the mornings (SBP <110), higher during the day, restarting low dose BB on 12/10/22 - therapies ordered - will require higher LOC upon discharge Status: Acute (2) NSTEMI (non-ST elevated myocardial infarction): Problem details: - elevated troponin noted on admission - holding BP medications given hypotension on admission - troponin peaked at 0.07 - TTE obtained 12/08: Normal LV size with moderately increased wall thickness, EF 60-65%, mildly enlarged left atrium, sclerotic aortic and mitral valves Status: Acute (3) Dementia: Problem details: - Alzheimer's, no agitation Status: Acute (4) Unable to care for self: Problem details: - will require higher LOC upon discharge; family has initiated discussions with [facility] in [place] Status: Acute (5) Abnormal ear exam: Problem details: - erythema and edema of inferior auricles bilaterally, (L>R), noted 12/08. No hx of polychondritis on chart review, notes history of AKs, BCC - patient does have history of skin picking - continue to follow, significant improvement 12/09 and resolved 12/10 Status: Acute Plan - await placement - Denise updated by phone Subjective Date Seen: 12/10/22 Interval history: Murphy was sleepy for most of the day yesterday; it was unclear if this was from Zyprexa he had received the night before or related to acute illness/progression of disease. This morning, he is awake and has participated in therapies. He has no concerns for hospitalist team; specifically denies any pain. Exam Narrative: Exam Narrative: GEN: Awake and sitting in bedside chair, watching baseball HEENT: Dry skin on scalp and ears, erythema and edema of inferior auricle (present on admission) has resolved CV: RRR, No concerning murmurs, rubs, or gallops R: LCTA bilaterally without concerning wheezing, air movement is adequate Skin: Age related skin changes (AKs and SKs), Left ear erythema from admission has significantly improved Neuro: No focal deficits or facial droop Psych:No agitation, cognitive impairment is evident Const: Vital Signs, click to edit/add: Vital Signs - 24 hr 12/09/22 15:48 12/09/22 23:00 12/09/22 23:00 Temperature 97.1 F L 97.5 F L Pulse Rate [Right Pulse Oximeter] 88 88 97 Respiratory Rate 16 16 16 Blood Pressure [Le ft Arm] 141/89 H 167/89 H Pulse Oximetry 97 97 Oxygen Delivery Me thod Room Air Room Air Labs Labs: Laboratory Results - last 24 hr 12/10/22 05:54 WBC 8.33 RBC 4.41 Hgb 13.5 Hct 40.7 MCV 92 MCH 31 MCHC 33 RDW Coeff of Merari 12.8 Plt Count 223 Neut % (Auto) 73.1 H Lymph % (Auto) 14.8 L [place] % (Auto) 10.1 Eos % (Auto) 1.3 Baso % (Auto) 0.5 Neut # (Auto) 6.10 Lymph # (Auto) 1.20 [place] # (Auto) 0.80 Eos # (Auto) 0.11 Baso # (Auto) 0.04 Abs Immat Gran (auto) 0.02 Imm/Tot Granulo (auto) 0.2 Sodium 137 Potassium 3.9 Chloride 100 Carbon Dioxide 30 BUN 24 Creatinine 1.1 Estimated Creat Clear 55.85 Estimated GFR 67 Glucose 92 Calcium 9.3 Troponin I 0.06 H*
[2022-12-10] MEDS: METOPROLOL SUCCINATE (XL) 25 MG TAB 12.5 MG PO (10:54)
[2022-12-10 15:00] VITALS: BP 104/57; PULSE 95; RESP 16; TEMP 36.9; O2SAT 94
--- NOTE | 2022-12-10 18:44 | PC.NURSE ---
End of Shift: Pt pleasant throughout shift with intermittent bouts of confusion. Pt closes eyes while speaking to him and appears to be sleeping, responds most of the time, requires reminders and prompts. Pt pivoted to SBC and bed with gait belt and 2 assist. Pt had one extra small bowel movement with a small amount of urine. at bedside. Tolerating regular diet well. Awaiting placement.
[2022-12-10 19:13] VITALS: BP 111/78; PULSE 105; RESP 16; TEMP 36.6; O2SAT 95
[2022-12-10] MEDS: ASPIRIN 81 MG TABLET EC PO (20:25)
[2022-12-10] MEDS: allopurinoL 300 MG TABLET PO (20:25)
[2022-12-10] MEDS: OMEPRAZOLE 20 MG CAPSULE DR PO (20:25)
[2022-12-11] VITALS (10 sets, daily range): BP systolic 79–144; BP diastolic 55–93; PULSE 64–100; RESP 12–20; TEMP 36.7–37.2; O2SAT 94–95
--- NOTE | 2022-12-11 06:08 | PC.NURSE ---
Pt is alert and oriented to self only, pt was up multiple times throughout night. Afebrile. Pt denies pain, chest pain, SOB, and N/V. Pt is up A1 with walker gait belt. Pt is tolerating regular diet and voiding incontinent x2 in brief. Pt slept intermittently throughout night. Pt?s IV started leaking and bleeding and was removed with catheter intact. New IV 20 gauge started in right forearm.?
[2022-12-11] MEDS: DONEPEZIL 10 MG TABLET PO (08:19)
[2022-12-11] MEDS: MEMANTINE HCL 10 MG TABLET PO (08:19)
[2022-12-11] MEDS: FAMOTIDINE 20 MG TABLET PO (08:19)
[2022-12-11] MEDS: LEVOTHYROXINE 75 MCG TABLET 150 MCG PO (08:19)
[2022-12-11] MEDS: METOPROLOL SUCCINATE (XL) 25 MG TAB 12.5 MG PO (08:19)
[2022-12-11] MEDS: SERTRALINE 50 MG TABLET 75 MG PO (08:20)
[2022-12-11] MEDS: SODIUM CHLORIDE 0.9 % (FLUSH) 10 ML SYRINGE 5 ML IVF (08:20)
--- NOTE | 2022-12-11 10:00 | PC.SOCIAL ---
Discharge planning: Late entry: On 12/10/22, met with pt, , son and dtr i law multiple times throughout the day. Family has contacted [facility] [place] and plan for pt to go there after a short term rehab stay. Family requested facility as close to [place] as possible for rehab stay. They requested in the following order: [facility], [facility], [facility], and [facility]. Family would accept [facility] if no other facility on their list can accept pt. Called and left messages at [facility] and [facility]. Faxed information to [facility], [facility] and [facility]. Received call back from [facility] stating they do not have an appropriate bed for pt. Awaiting calls back frmo other facilities. granite worker to follow up as needed.
--- NOTE | 2022-12-11 11:49 | PM.IMPN1 ---
Progress Note: A&P Assessment and plan (1) Weakness: Problem details: - likely primarily related to progression of dementia, NSTEMI also possibly contributing (recently age appropriate TSH) - hypotensive on admission, held home BP medications upon admission (attempted restart of low dose BB, hypotension returned) - therapies ordered - will require higher LOC upon discharge, family would also be amenable to comfort focused approach if indicated Status: Acute (2) NSTEMI (non-ST elevated myocardial infarction): Problem details: - elevated troponin noted on admission - holding BP medications given hypotension on admission. Attempted to restart low dose Metoprolol on 12/10, BP down to 80-90 systolic, so d/c'd again 12/11 - troponin peaked at 0.07 - TTE obtained 12/08: Normal LV size with moderately increased wall thickness, EF 60-65%, mildly enlarged left atrium, sclerotic aortic and mitral valves Status: Acute (3) Dementia: Problem details: - Alzheimer's, no agitation Status: Acute (4) Unable to care for self: Problem details: - will require higher LOC upon discharge; family has initiated discussions with [facility] in [place] for memory care placement Status: Acute (5) Abnormal ear exam: Problem details: - erythema and edema of inferior auricles bilaterally, (L>R), noted 12/08. No hx of polychondritis on chart review, notes history of AKs, BCC - patient does have history of skin picking - continue to follow, totally resolved by 12/10 Status: Acute (6) Hypothyroidism: Problem details: - TSH on 12/06 (at [address]): 5.7, Free T4 1.26 - continue home Synthroid dose Status: Acute Plan - per above - await SNF placement Subjective Date Seen: 12/11/22 Interval history: Murphy is sitting in bedside chair this morning, visiting with a friend. He has been able to participate in therapies. When asked if he has any pain or concerns for the hospitalist, he answers No, but I don't have the manual. We restarted low-dose metoprolol yesterday and he received a dose this morning; blood pressure after medication administration was noted to be 80s systolic. Exam Narrative: Exam Narrative: GEN: Awake and sitting in bedside chair, appears chronically ill but not acutely toxic HEENT: EOMIs bilaterally, no scleral icterus CV: RRR, No concerning murmurs R: LCTA bilaterally, air movement adequate Ext: 1+ bilateral lower extremity edema, unchanged Skin: Scattered AKAs and SKs on scalp and extremities, erythema and edema of ears has resolved Psych: Cognitive impairment is evident, no agitation Const: Vital Signs, click to edit/add: Vital Signs - 24 hr 12/10/22 15:00 12/10/22 15:00 12/10/22 19:13 Temperature 98.4 F 98 F Pulse Rate [Right Pulse Oximeter] 95 95 105 H Respiratory Rate 16 16 16 Blood Pressure [Le ft Arm] 104/57 L 111/78 Pulse Oximetry 94 95 Oxygen Delivery Me thod Room Air Room Air 12/11/22 00:24 12/11/22 01:20 12/11/22 03:10 Temperature 98.7 F 98.4 F Pulse Rate [Right Pulse Oximeter] 100 100 99 Respiratory Rate 20 20 18 Blood Pressure [Le ft Arm] 144/93 H 131/88 Pulse Oximetry 95 95 Oxygen Delivery Me thod Room Air Room Air 12/11/22 07:00 12/11/22 07:00 Temperature 99 F Pulse Rate [Right Pulse Oximeter] 94 94 Respiratory Rate 12 12 Blood Pressure [Le ft Arm] 114/75 Pulse Oximetry 95 Oxygen Delivery Me thod Room Air
--- NOTE | 2022-12-11 14:51 | PC.SOCIAL ---
Addendum entered by CONNIE Sanchez 12/12/22 07:39: PAS complted and submitted prior to admit to care home PAS#[id number]. Original Note: Discharge plan: Received call back from [facility], [facility] and [facility], all stating they can not accept pt. requested drug abuse social worker contact [facility]. Called and faxed information. Received a call back from [facility] stating they can accept pt todayuntil 8:00pm. Met with in room who is aware and agrees with this plan. requested transportation be arranged with EMS. Provided with copy of the Important Message from Medicare and explained this to her. When drug abuse social worker returned to the room to inform of discharge time of 3:30pm, she was in tears. Offered to call the sonÁlvaro to share the discharge plan. agreed with this. Social work called sonÁlvaro and shared discharge plan. forming process line worker shared that seemed distressed and son plans to call her to offer support. Son is aware of how to contact drug abuse social worker if needed.
--- NOTE | 2022-12-11 17:34 | PC.NURSE ---
Nursing Care Hours: [id number] Pt this shift calm and cooperative with cares. Oriented to self only. Intermittent confusion or not answering questions appropriately. Delayed verbal and physical responses. Hypotensive while sitting up in chair, WNL while laying down. Hospitalist aware, DC'd metoprolol. No signs of dizziness or lightheaded when standing. 1 assist transfer with walker and gait belt. Walked murillo x2, pt veering to the right. xxs BM x1. Very low u/o, oral intake encouraged but limited as well. Bladder scanned 9ml. Hospitalist made aware. IV dc'd for transfer to rehab facility.
--- NOTE | 2022-12-12 12:50 | PM.DS1 ---
DS: Providers Provider Date Seen: 12/12/22 Date of admission: 12/08/22 12:11 Primary care physician: Chacorta Lowry MD Admitting Clinician: Fany Montez MD Consults: PT, OT, SW Attending Physician on discharge: Fany Montez MD Date of Discharge: 12/11/22 DS: Diagnosis Discharge Diagnosis (1) Weakness: Status: Acute Problem details: - likely primarily related to progression of dementia, NSTEMI also possibly contributing (recently age appropriate TSH) - hypotensive on admission, held home BP medications upon admission (attempted restart of low dose BB, hypotension returned) - therapies ordered to follow - will require higher LOC upon discharge, family would also be amenable to comfort focused approach if indicated (2) NSTEMI (non-ST elevated myocardial infarction): Status: Acute Problem details: - elevated troponin noted on admission - holding BP medications given hypotension on admission. Attempted to restart low dose Metoprolol on 12/10, BP down to 80-90 systolic, so d/c'd again 12/11 - troponin peaked at 0.07 - TTE obtained 12/08: Normal LV size with moderately increased wall thickness, EF 60-65%, mildly enlarged left atrium, sclerotic aortic and mitral valves (3) Dementia: Status: Acute Problem details: - Alzheimer's, no agitation (4) Unable to care for self: Status: Acute Problem details: - will require higher LOC upon discharge; family has initiated discussions with [facility] in [place] for memory care placement as jail plan (5) Abnormal ear exam: Status: Acute Problem details: - erythema and edema of inferior auricles bilaterally, (L>R), noted 12/08. No hx of polychondritis on chart review, notes history of AKs, BCC - patient does have history of skin picking - continue to follow, totally resolved by 12/10 and wnl upon discharge (6) Hypothyroidism: Status: Acute Problem details: - TSH on 12/06 (at hospital): 5.7, Free T4 1.26 - continue home Synthroid dose DS: Summary Hospital Course Hospital Course: Murphy is an 82-year-old patient who presented to the hospital with acute on chronic weakness in the setting of dementia and probable NSTEMI. During stay, he was found to have hypotension and his home medications were discontinued. Troponin peaked at 0.07 and TTE findings are noted above. On hospital day 1, he was very somnolent and it was unclear if this was iatrogenic (Zyprexa) or new baseline. He later was more alert and participative in therapies, appropriate for SNF placement. Bed was available on 12/11 and patient was discharged to SNF in stable condition. Status at Discharge Functional status at discharge: uses cane/walker Time Spent with Patient Time attestation: Total time spent providing and/or coordinating discharge services: Time spent: Less than 30 minutes Exam Narrative: Exam Narrative: GEN: Awake and sitting in bedside chair, appears chronically ill but not acutely toxic HEENT: EOMIs bilaterally, no scleral icterus CV: RRR, No concerning murmurs R: LCTA bilaterally, air movement adequate Ext: 1+ bilateral lower extremity edema, unchanged Skin: Scattered AKAs and SKs on scalp and extremities, erythema and edema of ears has resolved Psych: Cognitive impairment is evident, no agitation Const: Vital Signs, click to edit/add: Vital Signs - 24 hr 12/11/22 15:00 12/11/22 15:00 Pulse Rate [Right Pulse Oximeter] 88 64 Respiratory Rate 18 Blood Pressure [Ri ght Arm] 124/78 Pulse Oximetry 94 Oxygen Delivery Me thod Room Air Discharge Plan Discharge Disposition: [facility] Date of Admission: 12/08/22 12:11 Attending Provider on Discharge: Fany Montez Primary Care Provider: Chacorta Lowry Condition: Stable Discharge Medications: New sennosides-docusate sodium [Stool Softener-Laxative] 8.6-50 mg Tablet 1 tab PO DAILY PRNQty: 30 0RF famotidine [Acid Wash Test Checker (famotidine)] 20 mg Tablet 20 mg PO BID Qty: 60 0RF Continued donepezil 10 mg tablet 10 mg PO DAILY levothyroxine 150 mcg tablet 150 mcg PO DAILY omeprazole 20 mg capsule,delayed release(DR/EC) 20 mg PO DAILY allopurinol 300 mg tablet 300 mg PO DAILY sertraline 50 mg tablet 75 mg PO DAILY memantine 10 mg tablet 10 mg PO BID aspirin [Adult Low Dose Aspirin] 81 mg tablet,delayed release (DR/EC) 81 mg PO DAILY Discontinued lisinopril 20 mg tablet 20 mg PO BID famotidine 40 mg tablet 40 mg PO DAILY amlodipine 10 mg tablet 10 mg PO DAILY furosemide 20 mg tablet 20 mg PO DAILY PRN Hold Instructions: 2/2 urinary frequency/incontinence metoprolol succinate 25 mg tablet extended release 24 hr 12.5 mg PO DAILY aspirin 81 mg capsule 81 mg PO DAILY Discharge Orders: Discharge Order (Routine); Ordered 12/11/22 Ordered By: Kandice Wahl Additional Instructions: All of Murphy's BP medications have been discontinued given significantly low BPs in the hospital. He occasionally would have higher blood pressures later in the day, but was too low when we attempted to restart his home medications. Activity Level: No strenuous activity Discharge Diet: Regular Follow Up Appointments: Chacorta Lowry MD [Primary Care Provider] - Wound Care: n/a Ostomy Care: n/a Admit to: SNF Discharge Potential: Fair Length of Stay: 30-90 days Can use facility standing orders?: Yes Code Status: DNR/DNI TEDs: N/A Rehab Potential: Fair Therapy: Physical Therapy and Occupational Therapy Therapy Orders: Evaluate and Treat Oxygen: No Urinary Catheter: No Glucose Checks: n/a Next INR: n/a Orders are good >30 days: Yes Signature: Fany Montez MD
== END 2022-12-11 16:20 | DRG 56 ==
LOC: ED 18:06 → MEDSURG 18:30
PROVIDERS: Admitting Provider Family Medicine; Emergency Provider Family Medicine; PCP Family Medicine; Visit Provider Family Medicine
DX: G30.9 Alzheimer's disease, unspecified (principal); I21.4 Non-ST elevation (NSTEMI) myocardial infarction; F02.80 Dementia in other diseases classified elsewhere, unspecified severity, without behavioral disturbance, psychotic disturbance, mood disturbance, and anxiety; R53.1 Weakness; I95.9 Hypotension, unspecified; S70.02XA Contusion of left hip, initial encounter; E03.9 Hypothyroidism, unspecified; Z91.81 History of falling; I10 Essential (primary) hypertension; F32.A Depression, unspecified; Z85.828 Personal history of other malignant neoplasm of skin; Z85.528 Personal history of other malignant neoplasm of kidney; L82.1 Other seborrheic keratosis; L57.0 Actinic keratosis; H61.893 Other specified disorders of external ear, bilateral
CPT/HCPCS: 36415; 51798; 80048; 84484; 85025; 86140; 93306; 97110; 97116; 97161; 97165; 97530; 97535; 99284; A9270; G0378

== ENCOUNTER 2022-12-11 15:57 | Outpatient (CLI) | payer MEDICARE, OTHER, SELFPAY | END 2022-12-11 15:58 | disposition home or self-care (01) | LOC: AMB 12-13 07:59 | PROVIDERS: PCP Family Medicine; Visit Provider Family Medicine | DX: R53.1 Weakness (principal); I21.4 Non-ST elevation (NSTEMI) myocardial infarction; F03.90 Unspecified dementia, unspecified severity, without behavioral disturbance, psychotic disturbance, mood disturbance, and anxiety | CPT/HCPCS: A0425; A0428 ==